=== PATIENT | female | born 1950 | race Caucasian/White ===

== ENCOUNTER → 2018-12-12 | Outpatient (REF) | payer MEDICARE ==
[~2018-12-12] MED LIST: ALDACTONE50 MG; ALLOPURINOL100 MG PO; AMARYL2 MG PO; COLCRYS0.6 MG PO; CYMBALTA30 MG; CYMBALTA60 MG; CYMBALTA60 MG PO; GABAPENTIN100 MG PO; INDOMETHACIN50 MG PO; K-TAB20 MEQ PO; KLOR-CON M2020 MEQ PO; LASIX 20 MG20 MG/TAB PO; LASIX40 MG PO; LEVOTHYROXIN125 MC1 PO; LIPITOR40 M1 PO; MEDDOSEPAK PO; METFORMIN500 M1 PO; METFORMIN500 MG PO; METO50TA52 PO; METOLAZONE2.5 MG PO; OMEPRAZOLE20 MG PO; PRAMIPEXOLE1.5 MG; PRAMIPEXOLE1.5 MG PO; PREMARIN1.25 MG PO; SG ASA LOW81 M1 PO; TRAMADOL HCL50 MG PO; TRIPLE MAGNESIUM COM PO; TRULICITY0.75 MG/0. SC; VITAMIN D35000 UNIT PO
[2018-12-12 13:26] LABS: HEMATOCRIT 40.5 % (37.0-47.0); HEMOGLOBIN 13.2 g/dl (12.0-16.0); MEAN CELL VOLUME 93.8 fL CALC (80.0-100.0); MEAN CORPUSCULAR HGB 30.6 pG CALC (26.0-32.0); MEAN CORPUSCULAR HGB CONC 32.6 g/L CALC (32.0-36.0); RED BLOOD COUNT 4.32 mill/uL (4.20-5.60); RED CELL DISTRI WIDTH 14.6 % (11.5-15.5)
[2018-12-12 13:50] LABS: ALKALINE PHOSPHATASE 140 u/l (38-126); BILIRUBIN, TOTAL 1.3 mg/dL (0.0-1.4); BUN 16 mg/dL (8-23); BUN/CREATININE RATIO 19 (12-20 (CALC)); CALCULATED LDLCHOLESTEROL 77 mg/dL (62-129 (CALC)); CARBON DIOXIDE 35 mmol/l (22-30); CHLORIDE 90 mmol/l (95-108); CHOLESTEROL HDL RATIO 3.8 (<4.4 (CALC)); CREATININE 0.8 mg/dL (0.5-1.0); GFR > 60 ML/MIN (>=60 (CALC)); GFR FOR AFR.AMER. > 60 ML/MIN (>=60 (CALC)); HDL CHOLESTEROL 42 mg/dL (>=40); MAGNESIUM 1.5 mg/dL (1.6-2.3); SGOT/AST 29 u/l (9-36); SODIUM 139 mmol/l (137-146); TOTAL CHOLESTEROL 162 mg/dl (0-199); TOTAL PROTEIN 7.5 g/dL (6.3-8.2); TOTAL TRIGLYCERIDES 214 mg/dl (30-149); VLDL CHOLESTROL 43 mg/dl (1-41 (CALC))
[2018-12-12 14:04] LABS: ALBUMIN 4.4 g/dL (3.2-5.0); ANION GAP 18 (6-22 (CALC)); POTASSIUM 3.7 mmol/l (3.5-5.1)
== END | disposition home or self-care (01) ==
LOC: CT 11:00
PROVIDERS: Internal Medicine; ATTEND Nurse Practitioner Family
DX: R10.9 Unspecified abdominal pain (principal); E11.65 Type 2 diabetes mellitus with hyperglycemia; E83.42 Hypomagnesemia; E87.6 Hypokalemia; I10 Essential (primary) hypertension
CPT/HCPCS: Q9967

== ENCOUNTER → 2018-12-29 | Outpatient (REF) | payer MEDICARE ==
[~2018-12-29] MED LIST changes: -SG ASA LOW81 M1 PO; -TRIPLE MAGNESIUM COM PO; -TRULICITY0.75 MG/0. SC; -VITAMIN D35000 UNIT PO
[2018-12-29 10:28] VITALS: BP 142/62
== END ==
LOC: FIOURUCCI 09:30 → FIORUCCI 09:30
PROVIDERS: ATTEND Surgery
DX: K57.92 Diverticulitis of intestine, part unspecified, without perforation or abscess without bleeding (principal)

== ENCOUNTER → 2019-01-15 | Outpatient (REF) | payer MEDICARE ==
[2019-01-15 16:45] LABS: ANION GAP 15 (6-22 (CALC)); BUN 17 mg/dL (8-23); BUN/CREATININE RATIO 19 (12-20 (CALC)); CARBON DIOXIDE 36 mmol/l (22-30); CHLORIDE 88 mmol/l (95-108); CREATININE 0.9 mg/dL (0.5-1.0); GFR > 60 ML/MIN (>=60 (CALC)); GFR FOR AFR.AMER. > 60 ML/MIN (>=60 (CALC)); MAGNESIUM 1.4 mg/dL (1.6-2.3); SODIUM 136 mmol/l (137-146)
[2019-01-15 16:47] LABS: POTASSIUM 2.9 mmol/l (3.5-5.1)
== END | disposition home or self-care (01) ==
LOC: LAB 14:23
PROVIDERS: ATTEND Internal Medicine
DX: E11.65 Type 2 diabetes mellitus with hyperglycemia (principal); I10 Essential (primary) hypertension; I50.9 Heart failure, unspecified; M19.011 Primary osteoarthritis, right shoulder

== ENCOUNTER 2019-03-17 09:27 | Day surgery (SDC) | payer MEDICARE ==
[~2019-03-17] VITALS: Ht 162.6 cm; Wt 90.7 kg
[~2019-03-17 09:27] MED LIST changes: +SG ASA LOW81 M1 PO; +TRIPLE MAGNESIUM COM PO; +TRULICITY0.75 MG/0. SC; +VITAMIN D35000 UNIT PO
[2019-03-17 13:33] VITALS: BP 123/59
== END 2019-03-17 12:24 | disposition home or self-care (01) ==
LOC: ENDO 09:27
PROVIDERS: ATTEND Surgery
PROC: 0DJD8ZZ Inspection of Lower Intestinal Tract, Via Natural or Artificial Opening Endoscopic (ICD-10-PCS; principal; 2019-03-17)
DX: K57.30 Diverticulosis of large intestine without perforation or abscess without bleeding (principal); I10 Essential (primary) hypertension; E11.40 Type 2 diabetes mellitus with diabetic neuropathy, unspecified; R10.32 Left lower quadrant pain; K59.00 Constipation, unspecified; R19.7 Diarrhea, unspecified

== ENCOUNTER 2019-06-16 14:59 | Inpatient (IN) | payer MEDICARE ==
[~2019-06-16] VITALS: Ht 162.6 cm; Wt 90.0 kg
[2019-06-16] MEDS ORDERED: IMITREX ST6 MG/0.5 M IM (15:36)
[2019-06-16] MEDS ORDERED: MECLIZINE25 MG PO (15:37)
[2019-06-16] MEDS ORDERED: METOLAZONE2.5 MG PO (15:38)
[2019-06-22] VITALS (11 sets, daily range): BP systolic 109–146; BP diastolic 49–88
[2019-06-22] MEDS ORDERED: BACTRIM DS1 TAB PO (09:37)
[2019-06-23 03:09] VITALS: BP 118/50
[2019-06-23 06:00] LABS: HEMATOCRIT 37.1 % (37.0-47.0); HEMOGLOBIN 12.1 g/dl (12.0-16.0); MEAN CELL VOLUME 93.5 fL CALC (80.0-100.0); MEAN CORPUSCULAR HGB 30.5 pG CALC (26.0-32.0); MEAN CORPUSCULAR HGB CONC 32.6 g/L CALC (32.0-36.0); RED BLOOD COUNT 3.97 mill/uL (4.20-5.60); RED CELL DISTRI WIDTH 13.2 % (11.5-15.5)
[2019-06-23 06:12] LABS: ANION GAP 14 (6-22 (CALC)); BUN 13 mg/dL (8-23); BUN/CREATININE RATIO 15 (12-20 (CALC)); CARBON DIOXIDE 30 mmol/l (22-30); CHLORIDE 94 mmol/l (95-108); CREATININE 0.9 mg/dL (0.5-1.0); GFR > 60 ML/MIN (>=60 (CALC)); GFR FOR AFR.AMER. > 60 ML/MIN (>=60 (CALC)); MAGNESIUM 1.6 mg/dL (1.6-2.3); POTASSIUM 3.7 mmol/l (3.5-5.1); SODIUM 134 mmol/l (137-146)
[2019-06-23 08:25] VITALS: BP 120/63
[2019-06-23] MEDS ORDERED: POTASSIUM CHLO10 ME4 PO (10:06)
[2019-06-23] MEDS ORDERED: LASIX 40 MG TAB40 MG PO (10:10)
[2019-06-23] MEDS ORDERED: SPIRONOLACT25 MG PO (10:11)
[2019-06-23] MEDS ORDERED: KAPSPARGO SPRIN50 MG PO (10:12)
[2019-06-23] MEDS ORDERED: COLCHICINE0.6 M2 PO (10:16)
[2019-06-23] MEDS ORDERED: PERCOCET 10/31 COMBO PO (10:43)
[2019-06-23 11:05] VITALS: BP 109/63
== END 2019-06-23 13:07 | disposition home health service (06) | DRG 483 ==
LOC: MS2 06-22 06:51
PROVIDERS: Internal Medicine; ADMIT Orthopaedic Surgery; ATTEND Orthopaedic Surgery
PROC: 0RRJ00Z Replacement of Right Shoulder Joint with Reverse Ball and Socket Synthetic Substitute, Open Approach (ICD-10-PCS; principal; 2019-06-22)
PROC: 0LS30ZZ Reposition Right Upper Arm Tendon, Open Approach (ICD-10-PCS; 2019-06-22)
PROC: 3E0T3BZ Introduction of Anesthetic Agent into Peripheral Nerves and Plexi, Percutaneous Approach (ICD-10-PCS; 2019-06-22)
DX: M75.121 Complete rotator cuff tear or rupture of right shoulder, not specified as traumatic (principal); I50.32 Chronic diastolic (congestive) heart failure; M19.011 Primary osteoarthritis, right shoulder; S46.211A Strain of muscle, fascia and tendon of other parts of biceps, right arm, initial encounter; I11.0 Hypertensive heart disease with heart failure; E11.9 Type 2 diabetes mellitus without complications; X58.XXXA Exposure to other specified factors, initial encounter; Z79.4 Long term (current) use of insulin
CPT/HCPCS: C9290; J0131; J1100; J2710

== ENCOUNTER 2021-03-11 07:21 | Inpatient (IN) | payer MEDICARE ==
[~2021-03-11] VITALS: Ht 162.6 cm; Wt 91.0 kg
[~2021-03-11 07:21] MED LIST changes: +BACTRIM DS1 TAB PO; +COLCHICINE0.6 M2 PO; +IMITREX ST6 MG/0.5 M IM; +KAPSPARGO SPRIN50 MG PO; +LASIX 40 MG TAB40 MG PO; +MECLIZINE25 MG PO; +METFORMIN500 M2 PO; -METFORMIN500 MG PO; +PERCOCET 10/31 COMBO PO; +POTASSIUM CHLO10 ME4 PO; +SPIRONOLACT25 MG PO
--- NOTE | 2021-03-11 07:25 | NUR ---
PT AMBUALTED TO ROOM. PT INSTRUCTED IN PLAN OF CARE.
--- NOTE | 2021-03-11 08:25 | NUR ---
Reassessment of patient completed. No distress noted.
[2021-03-11 08:29] LABS: HEMATOCRIT 35.5 % (37.0-47.0); IMMATURE GRANULOCYTES 0.5 % (0.0-5.0); MEAN CELL VOLUME 89.4 fL CALC (80.0-100.0); MEAN CORPUSCULAR HGB 27.7 pG CALC (26.0-32.0); NEUT# 8.3 thou/uL (2.00-7.15); RED BLOOD COUNT 3.97 mill/uL (4.20-5.60); RED CELL DISTRI WIDTH 15.5 % (11.5-15.5)
[2021-03-11 08:43] LABS: ALBUMIN 3.9 g/dL (3.2-5.0); ALKALINE PHOSPHATASE 121 u/l (38-126); ANION GAP 11 (6-22 (CALC)); BUN 14 mg/dL (8-23); BUN/CREATININE RATIO 13 (12-20 (CALC)); CARBON DIOXIDE 30 mmol/l (22-30); CHLORIDE 100 mmol/l (95-108); GFR 55 ML/MIN (>=60 (CALC)); GFR FOR AFR.AMER. > 60 ML/MIN (>=60 (CALC)); POTASSIUM 3.9 mmol/l (3.5-5.1); SGOT/AST 24 u/l (9-36); SODIUM 137 mmol/l (137-146); TOTAL PROTEIN 7.5 g/dL (6.3-8.2)
[2021-03-11 08:45] LABS: BILIRUBIN, TOTAL 1.3 mg/dL (0.0-1.4)
[2021-03-11 08:55] LABS: MYOGLOBIN 50 ng/mL (0 - 62)
--- NOTE | 2021-03-11 09:25 | NUR ---
Reassessment of patient completed. No distress noted.
--- NOTE | 2021-03-11 10:00 | NUR ---
Reassessment of patient completed. No distress noted.
[2021-03-11] MEDS ORDERED: GLIPIZIDE ER5 MG PO (10:07)
[2021-03-11] MEDS ORDERED: JANUVIA100 MG PO (10:08)
--- NOTE | 2021-03-11 11:00 | NUR ---
Reassessment of patient completed. No distress noted.
--- NOTE | 2021-03-11 11:55 | NUR ---
PT ARRIVED IN STABLE CONDITION VIA WC TO MED SURG FLOOR FROM ED ACCOMPANIED BY NURSE GUILLERMO SPENCER;PT AMBULATED TO BATHROOM AND THEN TO BED WITH A STEADY GAIT;PT DID HAVE SOME EXERTIONAL SOB UPON REACHING THE BED;PT PLACED IN HIGH FOWLERS POSITION AND O2@2L VIA NC WAS PLACED BACK ON PT;O2 SATS WERE 95%;VS AND ASSESSMENT WERE COMPLETED;HEART SOUNDS WERE REGULAR IN RATE AND RHYTHM;LUNG SOUNDS WERE SLIGHTLY DIMINISHED WITH RHONCHI NOTED THROUGHOUT;RESPIRATIONS WERE EVEN AND UNLABORED ON O2@2L VIA NC;PT HAS 1+PITTING EDEMA NOTED TO LOWER EXTREMETIES BILATERALLY;PT HAD CARPAL TUNNEL SURGERY ON SATURDAY AND HAS SURGICAL DRESSINGS IN PLACE TO THE RIGHT HAND AND FOREARM;DRESSING IS CDI;PT HAS A SLING ON HER RT ARM WELL;ALLERGY AND FALL RISK ARM BANDS WERE PLACED ON PT;BELONGING INVENTORY WAS TAKEN;PT ORIENTED TO CALL LIGHT AND BED;BEDSIDE COMMODE WAS PLACED;SAFETY PRECAUTIONS IN PLACE;CALL LIGHT WITHIN REACH;BED IN LOWEST POSITION;PT INSTRUCTED TO CALL WITH ANY CONCERNS OR ASSISTANCE NEEDED;WILL CONTINUE TO MONITOR.
[2021-03-11 13:47] LABS: URINE BILIRUBIN - DIPSTICK NEGATIVE (NEGATIVE); URINE BLOOD DIPSTICK NEGATIVE (NEGATIVE); URINE COLOR YELLOW; URINE GLUCOSE - DIPSTICK NEGATIVE (NEGATIVE); URINE KETONE NEGATIVE (NEGATIVE); URINE LEUK ESTERASE NEGATIVE (NEGATIVE); URINE PH 7.5 (4.5-8.0); URINE PROTEIN - DIPSTICK NEGATIVE (NEG-TRACE); URINE SPECIFIC GRAVITY <=1.005; URINE UROBILINOGEN - DIPSTICK 0.2 E.U./dL (0.2)
[2021-03-11 13:52] LABS: URINE NITRITE - DIPSTICK NEGATIVE (Negative)
[2021-03-11 15:31] VITALS: BP 116/56
--- NOTE | 2021-03-11 16:06 | NUR ---
PT WAS FOUND SITTING ON THE SIDE OF THE BED AFTER HAVING A SHOWER;O2@2L IS IN PLACE;#20G IV IN LFA IS SL, PATENT AND FREE OF COMPLICATIONS AT THIS TIME;TELE IS IN PLACE;SAFETY PRECAUTIONS IN PLACE;CALL LIGHT WITHIN REACH;BED IN LOWEST POSITION;WILL CONTINUE TO MONITOR.
--- NOTE | 2021-03-11 18:44 | NUR ---
PT STATES THAT SHE IS ALLERGIC TO PEPPER(ALL TYPES) WELL SALSA;WHEN ASKED WHAT TYPE OF ALLERGIC REACTION SHE HAD, SHE STATED THAT IT CAUSES HER THROAT TO SWELL AND SHE HAS DIFFICULTY BREATHING;DIETARY NOTIFIED I WAS UNABLE TO LIST THEM IN HER ALLERGIES
[2021-03-11 19:00] VITALS: BP 121/69
--- NOTE | 2021-03-11 19:54 | NUR ---
PHYSICAL ASSESMENT COMPLETE. PT C/O OF SOB AND DISCOMFORT. BREATHING TREATMENT HAS BEEN ORDERED. SCHEDULED MEDICATIONS AND PRN MEDICATION ADMINISTERED, SEE E-MAR. PT DENIES ANY NEEDS AT THIS TIME. PLAN OF CARE REVIEWED, PT DENIES QUESTIONS, VERBALIZES UNDERSTANDING. ITEMS WITHIN REACH, BED LOCKED IN LOW POSITION W/ BEDRAILS UP X2. CALL LUIS WITHIN REACH, AGREES TO CALL PRN.
[2021-03-11 23:00] VITALS: BP 114/58
--- NOTE | 2021-03-11 23:57 | NUR ---
PT LAYING WATCHING TV, APPEARS COMFORTABLE AND IN NO DISTRESS. RESPIRATIONS REGULAR AND UNLABORED. ITEMS REMAIN WITHIN REACH, CALL LUIS REMAINS WITHIN REACH. BED REMAINS LOCKED AND IN LOW POSITION WITH BEDRAILS UP X2. WILL CONTINUE TO MONITOR.
[2021-03-12 04:00] VITALS: BP 118/65
--- NOTE | 2021-03-12 04:17 | NUR ---
PT RESTING IN BED, NO SIGNS OF DISTRESS NOTED, RESP EVEN AND UNLABORED. PT VOICES NO NEEDS OR COMPLAINTS AT THIS TIME. CALL LIGHT IN REACH, CONTINUE TO MONITOR.
[2021-03-12 05:12] LABS: HEMATOCRIT 33.9 % (37.0-47.0); HEMOGLOBIN 10.5 g/dl (12.0-16.0); MEAN CELL VOLUME 89.4 fL CALC (80.0-100.0); MEAN CORPUSCULAR HGB 27.7 pG CALC (26.0-32.0); NEUT# 11.87 thou/uL (2.00-7.15); RED BLOOD COUNT 3.79 mill/uL (4.20-5.60); RED CELL DISTRI WIDTH 15.5 % (11.5-15.5)
[2021-03-12 05:41] LABS: ANION GAP 10 (6-22 (CALC)); BUN 18 mg/dL (8-23); BUN/CREATININE RATIO 21 (12-20 (CALC)); CARBON DIOXIDE 28 mmol/l (22-30); CHLORIDE 103 mmol/l (95-108); CREATININE 0.9 mg/dL (0.5-1.0); GFR > 60 ML/MIN (>=60 (CALC)); GFR FOR AFR.AMER. > 60 ML/MIN (>=60 (CALC)); POTASSIUM 3.8 mmol/l (3.5-5.1); SODIUM 137 mmol/l (137-146)
--- NOTE | 2021-03-12 07:00 | NUR ---
PT REPORT RECEIVED FROM NIGHT NURSE CECILE
[2021-03-12 07:30] VITALS: BP 103/61
--- NOTE | 2021-03-12 08:00 | NUR ---
PT WAS FOUND RESTING IN BED IN SEMI-FOWLERS POSITION;PT IS A&OX3;VS AND ASSESSMENT WERE COMPLETED;HEART SOUNDS ARE REGULAR IN RATE AND RHYTHM;TELE IS IN PLACE; LUNG SOUNDS ARE DIMINISHED WITH SCATTERED RHONCHI/WHEEZES;RESPIRATIONS ARE EVEN AND UNLABORED ON O2@2L VIA NC;TELE IS IN PLACE;#20G IV IN LFA IS SL, PATENT AND FREE OF COMPLICATIONS AT THIS TIME;SAFETY PRECAUTIONS IN PLACE;CALL LIGHT WITHIN REACH;BED IN LOWEST POSITION;WILL CONTINUE TO MONITOR.
--- NOTE | 2021-03-12 09:30 | NUR ---
AND FLASH MANNING AT BEDSIDE DISCUSSING POC WITH PT
[2021-03-12 10:45] VITALS: BP 110/62
--- NOTE | 2021-03-12 12:00 | NUR ---
PT WAS FOUND RESTING IN BED EATING LUNCH;PT HAS NO REPORTS OF PAIN AT THIS TIME;TELE IS IN PLACE;02@2L VIA NC IS IN PLACE;SAFETY PRECAUTIONS IN PLACE;CALL LIGHT WITHIN REACH;BED IN LOWEST POSITION;WILL CONTINUE TO MONITOR.
[2021-03-12 14:57] VITALS: BP 129/62
--- NOTE | 2021-03-12 16:00 | NUR ---
PT WAS FOUND RESTING IN BED;TELE IS IN PLACE;PT HAS NO REPORTS OF PAIN AT THIS TIME;#20G IV IN LFA IS SL, PATENT AND FREE OF COMPLICATIONS AT THIS TIME;SAFETY PRECAUTIONS IN PLACE;CALL LIGHT WITHIN REACH;BED IN LOWEST POSITION;WILL CONTINUE TO MONITOR.
[2021-03-12 19:00] VITALS: BP 104/59
--- NOTE | 2021-03-12 19:26 | NUR ---
REPORT GIVEN BY TRUPTI. PATIENT RESTING IN BED WATCHING TV. PATIENT RESP EVEN AND UNLABORED, 2L O2 VIA NC. NO S/S OF DISTRESS NOTED. FALL AND SAFTEY PRECAUTIONS IN PLACE. IV SALINE LOCKED. SR ON TELE. ICE SLEEVE ON RIGHT ARM. PLAN OF CARE DISCUSSED. PATIENT INFORMED TO CALL WITH ANY QUESTIONS OR CONCERNS.
[2021-03-13] VITALS: BP 125/65
--- NOTE | 2021-03-13 00:30 | NUR ---
PATIENT RESTING WITH EYES CLOSED. FALL AND SAFTEY PRECAUTIONS IN PLACE. NO S/S OF DISTRESS NOTED. RESP EVEN AND UNLABORED.
[2021-03-13 03:47] VITALS: BP 114/59
--- NOTE | 2021-03-13 04:07 | NUR ---
PATIENT RESTING WITH EYES CLOSED. RESP EVEN AND UNLABORED. NO S/S OF DISTRESS NOTED. FALL AND SAFTEY PRECAUTIONS IN PLACE.
[2021-03-13 04:31] LABS: HEMATOCRIT 35.3 % (37.0-47.0); HEMOGLOBIN 10.7 g/dl (12.0-16.0); IMMATURE GRANULOCYTES 0.8 % (0.0-5.0); MEAN CORPUSCULAR HGB 27.6 pG CALC (26.0-32.0); MEAN CORPUSCULAR HGB CONC 30.3 g/dL CAL (32.0-36.0); NEUT# 7.09 thou/uL (2.00-7.15); RED BLOOD COUNT 3.88 mill/uL (4.20-5.60); RED CELL DISTRI WIDTH 15.9 % (11.5-15.5)
[2021-03-13 04:40] LABS: ALBUMIN 3.4 g/dL (3.2-5.0); ALKALINE PHOSPHATASE 113 u/l (38-126); ANION GAP 9 (6-22 (CALC)); BILIRUBIN, TOTAL 0.9 mg/dL (0.0-1.4); BUN 20 mg/dL (8-23); BUN/CREATININE RATIO 22 (12-20 (CALC)); CARBON DIOXIDE 29 mmol/l (22-30); CHLORIDE 101 mmol/l (95-108); CREATININE 0.9 mg/dL (0.5-1.0); GFR > 60 ML/MIN (>=60 (CALC)); GFR FOR AFR.AMER. > 60 ML/MIN (>=60 (CALC)); MAGNESIUM 2.1 mg/dL (1.6-2.3); POTASSIUM 3.9 mmol/l (3.5-5.1); SGOT/AST 20 u/l (9-36); SODIUM 136 mmol/l (137-146); TOTAL PROTEIN 6.5 g/dL (6.3-8.2)
[2021-03-13 07:37] VITALS: BP 107/50
--- NOTE | 2021-03-13 07:37 | NUR ---
PT RESTING IN SEMI FOWLERS POSITION. PT IS A/O X3. ASSESSMENT AND VITALS COMPLETED. BP 107/50, HR 70, O2 97% ON ROOM AIR. REPSIRATIONS ARE EVEN AND UNLABORED WITH NO DISTRESS NOTED. CRACKLES PRESENT UPON ASCULTATION OF LUNGS. BOWEL SOUNDS ACTIVE. HEART RHYTHM NORMAL WITH TELE IN PLACE, SR PER ER MONITORING. RADIAL AND PEDAL PULSES ARE STRONG. #20G IN LFA INFILTARTED, NEW IV TO BE OBTAINED. SKIN INTACT. DRESSING TO R ARM CDI, FROM PREVIOUS SURGERY IN [facility]. 1+ EDEMA NOTED TO BLE. PT COMPLAINS OF 1/10 PAIN IN RIGHT ARM. PT MEDICATED PER EMAR. PT DENIES OF ANY NEEDS AT THIS TIME. ALL SAFETY PRECAUTIONS ARE IN PLACE WITH CALL LIGHT IN REACH. WILL CONTINUE TO MONITOR.
--- NOTE | 2021-03-13 09:47 | NUR ---
#20G IN RFA INFILTRATED, CATHATER INTACT UPO REMOVAL. #24G IN RFA STARTED,SITE REMAINS HEALTHY AND PATENT.
--- NOTE | 2021-03-13 10:48 | NUR ---
DR TOLEDO AT BEDSIDE
[2021-03-13 11:07] VITALS: BP 99/60
[2021-03-13] MEDS ORDERED: DOXYCYCL HYC100 MG PO (11:17)
--- NOTE | 2021-03-13 11:42 | NUR ---
PT SITTIN UP IN CHAIR. REPSIRATIONS ARE EVEN AND UNLABORED WITH NO DISTRESS NOTED. ACCUCHECK REUSLTING IN 179, NO COVERAGE ORDERED. ELECTRODES REMOVED. TELE MONITORING CALL TO ME TELE FOR DISCHARGE. PT DENIES OF ANY NEEDS AT THIS TIME. ALL SAFETY PRECAUTIONS ARE IN PLACE WITH CALL LIGHT IN REACH. WILL CONTINUE TO MONITOR.
--- NOTE | 2021-03-13 12:33 | NUR ---
PT EDUCATED ON DC INSTRUCTIONS AND NEW MEDICATIONS. PT VERBLAIZED UNDERSTANDING. #24G IN FA REMOVED WITH CATHATER STILL INTACT. WAITING FOR TRANSPORTATION. WILL CONTINUE TO MONITOR.
--- NOTE | 2021-03-13 13:00 | NUR ---
Discharge instructions given. Patient verbalizes understanding of same. Discharged in stable condition via Wheelchair to Home with family. All belongings sent with pt. PT DC [facility] IN STABLE CONDITON ACCOMPAINED BY STAFF IN STABLE CONDITION WITH ALL BELONGINGS AND DC INSTRUCTIONS.
--- NOTE | 2021-03-13 16:27 | NUR ---
Patient was assessed today and is not a candidate for PT intervention at this time.
--- NOTE | 2021-03-16 11:37 | NUR ---
Pneumonia post discharge follow up call completed today, 03/16/21. Persistent cough per patient, but no fever, chills, or excessive SOB. Pt. obtained discharge medication and has taken. Had some nausea with antibiotic, but was instructed by PCP office to take wiwth food. Follow up appt. with PCP scheduled for 03/22/21. Pt. voiced no other medical questions at this time. Appriciative of care during admission and for follow up call.
== END 2021-03-13 13:00 | disposition home or self-care (01) | DRG 291 ==
LOC: ED 07:21 → ED-I 10:13 → ED 10:34 → MS2 10:35
PROVIDERS: Emergency Medicine; Nurse Practitioner; ADMIT Internal Medicine; ATTEND Internal Medicine
DX: I11.0 Hypertensive heart disease with heart failure (principal); J18.9 Pneumonia, unspecified organism; I50.9 Heart failure, unspecified; R09.02 Hypoxemia; E11.40 Type 2 diabetes mellitus with diabetic neuropathy, unspecified; E78.5 Hyperlipidemia, unspecified; F41.9 Anxiety disorder, unspecified; M79.7 Fibromyalgia; M10.9 Gout, unspecified; Z79.84 Long term (current) use of oral hypoglycemic drugs; Z98.890 Other specified postprocedural states; Z20.822 Contact with and (suspected) exposure to COVID-19
CPT/HCPCS: J1650; J1956; Q9967

== ENCOUNTER 2021-06-30 16:25 | Observation (INO) | payer MEDICARE ==
[~2021-06-30] VITALS: Ht 162.6 cm; Wt 93.0 kg
[~2021-06-30 16:25] MED LIST changes: +DOXYCYCL HYC100 MG PO; +GLIPIZIDE ER5 MG PO; +JANUVIA100 MG PO
--- NOTE | 2021-06-30 16:28 | NUR ---
PT TO ER BED 2 FOR TRIAGE AND EXAM AT THIS TIME. CALL LIGHT WITHIN REACH AND MLP AT BEDSIDE.
--- NOTE | 2021-06-30 17:46 | NUR ---
PT RESTING IN BED WITH AT B/S. VSS, O2 SAT 95% ON RA. IMPROVEMENT OF SWELLING TO LIPS. NO S/S OF DISTRESS. PT HAS NO COMPLAINTS OR NEEDS AT THIS TIME.
--- NOTE | 2021-06-30 19:00 | NUR ---
REPORT TO KRISTY SPENCER AND BOOGIE GAMEZ. CARE RELINQUISHED AT THIS TIME.
[2021-06-30] MEDS ORDERED: MEDDOSEPAK PO (20:37)
[2021-06-30] MEDS ORDERED: PEPCID20 MG PO (20:37)
[2021-06-30] MEDS ORDERED: BENADRYL25 M1 PO (20:37)
--- NOTE | 2021-06-30 21:40 | NUR ---
UP FOR DISCHARGE...PT BEGAN C/O PALPITATIONS. NOTIFIED. EKG COMPLETED.
[2021-06-30 22:44] LABS: HEMOGLOBIN 11.7 g/dl (12.0-16.0); IMMATURE GRANULOCYTES 0.8 % (0.0-5.0); MEAN CELL VOLUME 86.7 fL CALC (80.0-100.0); MEAN CORPUSCULAR HGB 27.4 pG CALC (26.0-32.0); MEAN CORPUSCULAR HGB CONC 31.6 g/dL CAL (32.0-36.0); NEUT# 13.34 thou/uL (2.00-7.15); RED BLOOD COUNT 4.27 mill/uL (4.20-5.60); RED CELL DISTRI WIDTH 13.9 % (11.5-15.5)
[2021-06-30 22:56] LABS: ALBUMIN 4.2 g/dL (3.2-5.0); ALKALINE PHOSPHATASE 129 u/l (38-126); BILIRUBIN, TOTAL 0.8 mg/dL (0.0-1.4); BUN 26 mg/dL (8-23); BUN/CREATININE RATIO 23 (12-20 (CALC)); CARBON DIOXIDE 30 mmol/l (22-30); CHLORIDE 88 mmol/l (95-108); CREATININE 1.1 mg/dL (0.5-1.0); GFR 49 ML/MIN (>=60 (CALC)); GFR FOR AFR.AMER. 59 ML/MIN (>=60 (CALC)); SGOT/AST 31 u/l (9-36); SODIUM 134 mmol/l (137-146); TOTAL PROTEIN 7.6 g/dL (6.3-8.2)
[2021-06-30 23:03] LABS: ANION GAP 19 (6-22 (CALC)); POTASSIUM 2.7 mmol/l (3.5-5.1)
[2021-06-30 23:08] LABS: MYOGLOBIN 45 ng/mL (0 - 62)
--- NOTE | 2021-06-30 23:15 | NUR ---
TO BATHOOM. AMBULATES WITH STEADY GAIT.
--- NOTE | 2021-07-01 00:12 | NUR ---
REPORT RECEIVED FROM Ani HORN LPN
--- NOTE | 2021-07-01 00:14 | NUR ---
PT HAS BEEN ADMITTED TO HOSPITAL FOR MONITORING, TRANSPORTED VIA W/C TO ROOM 279. PT STABLE ON ARRIVAL TO MEDICAL SURGICAL FLOOR
[2021-07-01 00:26] VITALS: BP 134/65
--- NOTE | 2021-07-01 00:27 | NUR ---
PATIENT ARRIVED VIA WHEEL CHAIR ACCOMPANIED BY Ani HORN LPN
--- NOTE | 2021-07-01 00:27 | NUR ---
ALERT AND ORIENTED X3. NORMAL HEART SOUNDS, NON LABORED BREATHING, CLEAR LUNG HUI THROUGHOUT HUI. #22 TO THE LEFT FORE ARM WITH IVF, SEE EMAR. PATIENT STATES SHE HAS A SEVERE REACTION TO ALL PEPPER, ON THIS OCCASION SHE SAYS SHE TRIED EATING CHICKEN WHILE AVOINDING PEPPER, BUT STILL HAD REACTION. PT ALSO STATES HER REACTION TO SPICES IS SEVERE. BOTH BEGIN WITH SWELLING OF HER LIPS AND SPREAD THROUGHOUT DOWN TO HER LEGS. PLAN OF CARE REIWED WITH PATIENT, INSTRUCTED TO CALL. BEDSIDE TABLE AND CALL LIGHT WITHIN REACH.
--- NOTE | 2021-07-01 00:30 | NUR ---
EKG/LABS PCXR COMPLETED. PT TO BE ADMITTED FOR HYPOKALEMIA
--- NOTE | 2021-07-01 04:00 | NUR ---
PATIENT REQUESTING BREAKFAST, PROVIDED PATIENT WITH CEREAL AND MILK.
[2021-07-01 04:55] VITALS: BP 151/63
--- NOTE | 2021-07-01 05:43 | NUR ---
CALL PLACED TO DIETARY REGARDING ALLERGY TO SPICES AND PEPPER. SPOKE TO MS AGUILAR. PATIENT ON BLAND DIET
[2021-07-01 06:23] LABS: HEMATOCRIT 34.7 % (37.0-47.0); HEMOGLOBIN 11.1 g/dl (12.0-16.0); MEAN CELL VOLUME 86.5 fL CALC (80.0-100.0); MEAN CORPUSCULAR HGB 27.7 pG CALC (26.0-32.0); RED BLOOD COUNT 4.01 mill/uL (4.20-5.60)
[2021-07-01 06:45] LABS: BUN 28 mg/dL (8-23); BUN/CREATININE RATIO 28 (12-20 (CALC)); CALCULATED LDLCHOLESTEROL 85 mg/dL (62-129 (CALC)); CARBON DIOXIDE 28 mmol/l (22-30); CHLORIDE 91 mmol/l (95-108); CHOLESTEROL HDL RATIO 3.9 (<4.4 (CALC)); GFR 55 ML/MIN (>=60 (CALC)); GFR FOR AFR.AMER. > 60 ML/MIN (>=60 (CALC)); HDL CHOLESTEROL 38 mg/dL (>=40); SODIUM 131 mmol/l (137-146); TOTAL CHOLESTEROL 148 mg/dl (0-199); TOTAL TRIGLYCERIDES 121 mg/dl (30-149); VLDL CHOLESTROL 24 mg/dl (0-48 (CALC))
[2021-07-01 06:49] LABS: ANION GAP 15 (6-22 (CALC)); MAGNESIUM 1.3 mg/dL (1.6-2.3); POTASSIUM 3.3 mmol/l (3.5-5.1)
--- NOTE | 2021-07-01 07:00 | NUR ---
REPORT RECEIVED FROM TJ MASSEY
--- NOTE | 2021-07-01 07:50 | NUR ---
PT RESTING IN SEMI FOWLERS POSITION,A&O X3;VS OBTAINED AND ASSESSMENT COMPLETED;PT DENIES ANY CURRENT PAIN OR DISCOMFORTS,PAIN SCALE AND REPORTING EDUCATED;RESPIRATIONS EVEN AND UNLABORED ON RA,CLEAR LUNG SOUNDS;ABDOMEN SOFT ON PALPATION AND ACTIVE IN ALL 4 QUADRANTS;STRONG PEDAL PULSES;SKIN INTACT;TELE MONITORING IN PLACE;#20G TO LAC INFUSING NS W/ 20MEQ OF K PER ORDER,SITE APPEARS HEALTHY;ACCUCHECK 396, PT COVERED WITH SLIDING SCALE INSULIN PER ORDER;PT DENIES ANY ADDITIONAL NEEDS AND IS ENCOURAGED TO CALL FOR ASSISTANCE IF NEEDED;FALL PRECAUTIONS IN PLACE WITH BED IN THE LOWEST POSITION AND CALL LIGHT IN REACH;WILL CONTINUE TO MONITOR
[2021-07-01 07:52] VITALS: BP 145/63
--- NOTE | 2021-07-01 10:19 | NUR ---
PT MEDICATED WITH PRN TYLENOL 650MG PO FOR HEADACHE PAIN RATING 2/10 ON THE PAIN SCALE,PAIN SCALE AND REPORTING EDUCATED.
--- NOTE | 2021-07-01 10:53 | NUR ---
AND DORINA MEJIARP AT BEDSIDE DISCUSSING POC INCLUDING PLANS TO D/C HOME.
[2021-07-01] MEDS ORDERED: ISOSORB MONO20 MG PO (11:08)
--- NOTE | 2021-07-01 11:10 | NUR ---
LAB AT BEDSIDE
[2021-07-01 11:15] VITALS: BP 104/52
--- NOTE | 2021-07-01 11:15 | NUR ---
PT RESTING IN SEMI FOWLERS POSITION;RESPIRATIONS EVEN AND UNLABORED ON RA;PT REPORTS HEADACHE PAIN UNRELEIVED FROM PRN TYLENOL, PT DENIES ANY ADDITIONAL NEEDS;TELE MONITORING IN PLACE;IV SITE PATENT;PT EDUCATED ON PLANS TO D/C THIS AFTERNOON AFTER IV MAGNESIUM ADMINISTRATION AND VERBALIZES UNDERSTANDING;ACCUCHECK 313, PT COVERED WITH SLIDING SCALE INSULIN PER ORDER;PT ENCOURAGED TO CALL FOR ASSISTANCE IF NEEDED;CALL LIGHT IN REACH;WILL CONTINUE TO MONITOR
[2021-07-01] MEDS ORDERED: ALLOPURINOL100 MG PO (11:35)
--- NOTE | 2021-07-01 15:20 | NUR ---
PT RESTING IN SEMI FOWLERS POSITION;RESPIRATIONS EVEN AND UNLABORED ON RA;PT DENIES ANY CURRENT PAIN OR NEEDS;TELE MONITORING IN PLACE;IV SITE PATENT INFUSING MAG WITH EASE PER ORDER;PT DENIES ANY ADDITIONAL NEEDS AND IS ENCOURAGED TO CALL FOR ASSISTANCE IF NEEDED;AWAITING IV INFUSE TO BE COMPLETED FOR D/C HOME;WILL CONTINUE TO MONITOR
--- NOTE | 2021-07-01 16:30 | NUR ---
ALL DISCHARGE INSTRUCTIONS PROVIDED AT THIS TIME;PT INSTRUCTED TO F/U WITH PCP AND IN 1 WEEK, TAKE BENEDRYL NEEDED,REPEAT LAB WORK IN ONE WEEK, AND TAKE ROUTINE MEDICATIONS DIRECTED.PT DENIES ANY ADDITIONAL QUESTIONS OR NEEDS;IV SITE REMOVED WITH CATHETER INTACT AND TELE MONITORING D/C PER ORDER;WHEELCHAIR TO BE PROVIDED FOR D/C HOME;FAMILY TO TRANSPORT PT HOME;WILL CONTINUE TO MONITOR
--- NOTE | 2021-07-01 16:38 | NUR ---
Discharge instructions given. Patient verbalizes understanding of same. Discharged in stable condition via Wheelchair to Home with family. All belongings sent with pt. PT TRANSPORTED TO [facility] IN STABLE CONDITON VIA ACCOMPANIED BY EDWIN SALAZAR. FAMILY TO TRANSPORT PT HOME.ALL BELONGINGS LEFT WITH PT.
== END 2021-07-01 16:58 | disposition home or self-care (01) ==
LOC: ED 16:25 → MS2 23:39 → ED 23:40 → ED-I 23:40 → MS2 07-01 16:58
PROVIDERS: Emergency Medicine; ADMIT Hospitalist; ATTEND Hospitalist
DX: R07.9 Chest pain, unspecified (principal); T78.3XXA Angioneurotic edema, initial encounter; E87.6 Hypokalemia; I10 Essential (primary) hypertension; E11.40 Type 2 diabetes mellitus with diabetic neuropathy, unspecified; M79.7 Fibromyalgia; G25.81 Restless legs syndrome; M10.9 Gout, unspecified; M19.90 Unspecified osteoarthritis, unspecified site; F41.9 Anxiety disorder, unspecified; K58.9 Irritable bowel syndrome, unspecified; Z91.018 Allergy to other foods; Z79.84 Long term (current) use of oral hypoglycemic drugs; Z20.822 Contact with and (suspected) exposure to COVID-19
CPT/HCPCS: J3475

== ENCOUNTER 2023-07-31 18:03 | Emergency (ER) | payer MEDICARE ==
[~2023-07-31] VITALS: Ht 162.6 cm; Wt 88.0 kg
[~2023-07-31 18:03] MED LIST changes: +ALDACTONE25 MG PO; +ALLOPURINOL200 MG PO; +ALPRAZOLAM PO; +BENADRYL25 M1 PO; +FARXIGA10 MG PO; +IMITREX50 MG PO; +ISOSORB MONO20 MG PO; +PEPCID20 MG PO; +PROVENTIL0.083 % IN; +VENTOLIN HFA IN; +VITAMIN D5000 UNIT PO; +XANAX0.25 MG PO
[2023-07-31 18:24] VITALS: BP 140/72
[2023-07-31 18:30] VITALS: BP 136/58
[2023-07-31 18:45] VITALS: BP 159/62
[2023-07-31 19:00] VITALS: BP 124/65
[2023-07-31 19:15] VITALS: BP 148/64
[2023-07-31 19:45] LABS: BASO% 0.4 % (0-3); EOS% 2.1 % (0-8); HEMATOCRIT 41.7 % (37.0-47.0); HEMOGLOBIN 13.6 g/dl (12.0-16.0); IMMATURE GRANULOCYTES 0.7 % (0.0-5.0); LYMPH% 16.8 % (15-41); MEAN CELL VOLUME 93.7 fL CALC (80.0-100.0); MEAN CORPUSCULAR HGB 30.6 pG CALC (26.0-32.0); MEAN CORPUSCULAR HGB CONC 32.6 g/dL CAL (32.0-36.0); MONO% 6.3 % (2-13); NEUT# 8.97 thou/uL (2.00-7.15); NEUT% 73.7 % (42-76); RED BLOOD COUNT 4.45 mill/uL (4.20-5.60); RED CELL DISTRI WIDTH 14.6 % (11.5-15.5)
[2023-07-31 19:54] LABS: ALBUMIN 4.4 g/dL (3.2-5.0); BILIRUBIN, TOTAL 1.6 mg/dL (0.02-1.3); CREATININE 1.4 mg/dL (0.5-1.0); POTASSIUM 3.6 mmol/l (3.5-5.1); TOTAL PROTEIN 8.1 g/dL (6.3-8.2)
[2023-07-31 21:36] VITALS: BP 144/65
== END 2023-07-31 21:48 | disposition home or self-care (01) ==
LOC: ED 18:03
PROVIDERS: Nurse Practitioner
DX: S00.03XA Contusion of scalp, initial encounter (principal); I11.0 Hypertensive heart disease with heart failure; I50.9 Heart failure, unspecified; E11.9 Type 2 diabetes mellitus without complications; W17.89XA Other fall from one level to another, initial encounter; Y93.89 Activity, other specified; Y92.009 Unspecified place in unspecified non-institutional (private) residence as the place of occurrence of the external cause; Z79.84 Long term (current) use of oral hypoglycemic drugs

== ENCOUNTER 2023-10-14 10:21 | Emergency (ER) | payer MEDICARE ==
[2023-10-14] VITALS (12 sets, daily range): BP systolic 146–177; BP diastolic 65–78
[~2023-10-14] VITALS: Ht 162.6 cm; Wt 87.0 kg
[~2023-10-14 10:21] MED LIST changes: +FLEXERIL5 M1 PO; +OXYCODONE10 M1 PO; +XANAX0.5 MG PO
[2023-10-14] MEDS ORDERED: HYDROCO/APAP1 TA9 PO (12:10)
== END 2023-10-14 12:54 | disposition home or self-care (01) ==
LOC: ED 10:21
DX: M54.50 Low back pain, unspecified (principal); I10 Essential (primary) hypertension; E11.9 Type 2 diabetes mellitus without complications; E78.5 Hyperlipidemia, unspecified; Z79.84 Long term (current) use of oral hypoglycemic drugs